=== PATIENT | female | born 1980 | race American Indian/Alaskan Native ===

== ENCOUNTER 2019-04-02 20:02 | Emergency (ER) | payer MEDICAID, OTHER ==
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
[2019-04-03] MEDS ORDERED: KETOROLAC 30 MG/1 ML INJ IM ONE (02:09)
[2019-04-03] MEDS ORDERED: CYCLOBENZAPRINE 10 MG TAB PO ONE (02:09)
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
[2019-04-03 02:58] VITALS: BP 142/82
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
== END 2019-04-03 04:00 | disposition home or self-care (01) ==
LOC: ED 20:02
DX: M54.89 Other dorsalgia (principal); M54.2 Cervicalgia; V89.2XXA Person injured in unspecified motor-vehicle accident, traffic, initial encounter; Y93.89 Activity, other specified; Y92.89 Other specified places as the place of occurrence of the external cause; Y99.2 Volunteer activity
CPT/HCPCS: 70450; 72072; 72100; 72125; 96372; 99284; J1885